=== PATIENT | female | born 1945 | race Hispanic/Latino ===

== ENCOUNTER 2016-11-12 06:41 | Day surgery (SDC) | payer MEDICARE ==
[~2016-11-12] VITALS: Ht 162.6 cm; Wt 70.3 kg
[~2016-11-12 06:41] MED LIST: ADVAIR HF2 INH; ALPHA LIPOIC600 MG PO; CARE; CIPRO500 MG OR; CIPROFLOXACIN250 MG PO; CYMBALTA30 MG PO; CYMBALTA60 MG PO; DETROL LA2 MG OR; DICLOXACILL500 MG PO; DOCUSATE SOD100 M2 PO; DULERA1 AER IN; ELAVIL10 MG PO; ELAVIL25 MG PO; EPIPEN0.3 MG IM; FLEXERIL10 MG PO; FLONASE SPRAY50 MC1; GABAPENTIN300 M2 PO; GABAPENTIN800 MG PO; GNP IBUPROFEN PO; HUMULIN 70/30 K1 INJ SC; HYDROCHLOROT25 MG PO; HYDROMET1 M1 PO; LANTUS100 MG/ML SC; LATANOPROST0.005 % OP; LEVEMIR FL100 UNIT/M SC; LEVEMIR FLEXPEN SC; LISINOPRIL10 MG PO; LISINOPRIL5 MG OR; LORTAB 7.5-3251 TAB PO; LYRICA50 MG PO; METFORMIN1000 MG PO; METFORMIN500 M1 OR; METFORMIN500 MG PO; MUCINEX600 MG OR; MULTIVITAMIN WO1 TAB PO; NASONEX50 MCG/AC; NOVOLIN 70/30 SC; NOVOLO1 SC; NOVOLOG SC; NYSTATIN100000 M1 PO; ONE TOUCH ULTRA XX; OXYBUTYNIN5 MG PO; PEN NEEDLE1 SC; PREDNISODT10 PO; PREDNISONE2.5 MG PO; PREDNISONE5 MG OR; PREVACID30 M1 PO; PROAIR HFA IN; PROMETHAZINE25 MG OR; SINGULAIR10 MG PO; SSKI1 GM/ML PO; VICODIN1 TAB PO; VICTOZA18 MG/3 ML SC; VITAMIN D35000 UNIT PO; VITAMIN D50000 UNT PO; XOLAIR150 MG SC; XOPENEX IN; [UNRECOGNIZED DRUG - OTHER] SC; [UNRECOGNIZED DRUG - SUPPLY] XX
[2016-11-12] MEDS ORDERED: LEVAQUIN500 MG PO (11:01)
[2016-11-12] MEDS ORDERED: TRAMADOL HYDROC50 MG PO (11:01)
[2016-11-12 11:30] VITALS: BP 106/53
== END 2016-11-12 15:00 | disposition home or self-care (01) ==
LOC: PO 06:41 → ORM 06:41 → PO 07:00 → ORM 07:00
PROVIDERS: ATTEND Urology
PROC: 0TSD0ZZ Reposition Urethra, Open Approach (ICD-10-PCS; principal; 2016-11-12)
DX: N39.3 Stress incontinence (female) (male) (principal); J45.909 Unspecified asthma, uncomplicated; I10 Essential (primary) hypertension; G62.9 Polyneuropathy, unspecified
CPT/HCPCS: C1771; J1956

== ENCOUNTER 2017-08-19 07:56 | Emergency (ER) | payer MEDICARE ==
[~2017-08-19] VITALS: Ht 162.6 cm; Wt 70.0 kg
[~2017-08-19 07:56] MED LIST changes: +CLONAZEP ODT0.5 MG PO; +FISH OIL1 CAP PO; +HUMULIN R500 UNIT/1; +LEVAQUIN500 MG PO; +TRAMADOL HYDROC50 MG PO
[2017-08-19] MEDS ORDERED: PREDNISONE10 MG PO (08:25)
[2017-08-19] MEDS ORDERED: Levaquin PO (08:26)
[2017-08-19 08:56] LABS: HEMATOCRIT 42.7 % (37.0-47.0); HEMOGLOBIN 14.6 g/dl (12.0-16.0); IMMATURE GRANULOCYTES 0.4 % (0.0-1.0); MEAN CELL VOLUME 91.6 fL CALC (80.0-100.0); MEAN CORPUSCULAR HGB 31.3 pG CALC (26.0-32.0); MEAN CORPUSCULAR HGB CONC 34.2 g/L CALC (32.0-36.0); NEUT# 7.35 thou/uL (2.00-7.15); RED BLOOD COUNT 4.66 mill/uL (4.20-5.60); RED CELL DISTRI WIDTH 13.2 % (11.5-15.5)
[2017-08-19 09:08] LABS: INFLUENZA A NONE DETECTED (NONE DETECT); INFLUENZA B NONE DETECTED (NONE DETECT)
[2017-08-19 09:11] LABS: ALBUMIN 4.1 g/dL (3.2-5.0); ALKALINE PHOSPHATASE 141 u/l (38-126); ANION GAP 17 (6-22 (CALC)); BILIRUBIN, TOTAL 0.6 mg/dL (0.0-1.4); BUN 21 mg/dL (8-23); BUN/CREATININE RATIO 29 (12-20 (CALC)); CARBON DIOXIDE 25 mmol/l (22-30); CHLORIDE 106 mmol/l (95-108); CREATININE 0.7 mg/dL (0.5-1.0); GFR > 60 ML/MIN (>=60 (CALC)); GFR FOR AFR.AMER. > 60 ML/MIN (>=60 (CALC)); GLUCOSE 258 mg/dL (82-115); POTASSIUM 3.6 mmol/l (3.5-5.1); SGOT/AST 26 u/l (9-36); SGPT/ALT 48 u/l (11-66); SODIUM 143 mmol/l (137-146); TOTAL PROTEIN 7.4 g/dL (6.3-8.2)
[2017-08-19] MEDS ORDERED: ROBITUSSIN AC10 ML PO (09:54)
[2017-08-19] MEDS ORDERED: CEPHALEXIN500 MG PO (09:54)
[2017-08-19 10:24] VITALS: BP 124/65
== END 2017-08-19 10:43 | disposition home or self-care (01) ==
LOC: ED 07:56
PROVIDERS: Emergency Medicine
DX: J06.9 Acute upper respiratory infection, unspecified (principal); R05 Cough

== ENCOUNTER 2019-09-18 17:23 | Inpatient (IN) | payer MEDICARE ==
[~2019-09-18] VITALS: Ht 160 cm; Wt 67.6 kg
[~2019-09-18 17:23] MED LIST changes: +CEPHALEXIN500 MG PO; +DORZOLAMIDE HCL2 % OU; +HUMULIN R500 UNIT/1 IJ; +Levaquin PO; +METFORMIN HCL500 M1 PO; +OXYBUTININ PO; +PREDNISONE10 MG PO; +PRILOSEC20 MG PO; +ROBITUSSIN AC10 ML PO
--- NOTE | 2019-09-18 18:56 | NUR ---
TO ROOM VIA WC
--- NOTE | 2019-09-18 19:45 | NUR ---
RESTING QUIETLY AWAITING X-RAY RESULTS
--- NOTE | 2019-09-18 20:30 | NUR ---
AWAITING TEST RESULTS
--- NOTE | 2019-09-18 21:20 | NUR ---
LEFT ANKLE POSTERIOR SPLINT APPLIED
[2019-09-18] MEDS ORDERED: PERCOCET 5/321 COMBO PO (21:34)
[2019-09-18] MEDS ORDERED: WALKER/ADULT/FOLDING EX (21:36)
--- NOTE | 2019-09-18 22:30 | NUR ---
D/C CANCELLED. SURGERY REPAIR TO BE DONE TONIGHT
--- NOTE | 2019-09-18 22:40 | NUR ---
DR CAGLE DISCUSSED WITH PT.
[2019-09-18 23:09] LABS: HEMATOCRIT 39.5 % (37.0-47.0); HEMOGLOBIN 13.3 g/dl (12.0-16.0); IMMATURE GRANULOCYTES 0.5 % (0.0-5.0); MEAN CELL VOLUME 92.3 fL CALC (80.0-100.0); MEAN CORPUSCULAR HGB 31.1 pG CALC (26.0-32.0); MEAN CORPUSCULAR HGB CONC 33.7 g/L CALC (32.0-36.0); NEUT# 11.2 thou/uL (2.00-7.15); RED BLOOD COUNT 4.28 mill/uL (4.20-5.60); RED CELL DISTRI WIDTH 13.4 % (11.5-15.5)
[2019-09-18 23:27] LABS: ALBUMIN 4.4 g/dL (3.2-5.0); ALKALINE PHOSPHATASE 161 u/l (38-126); ANION GAP 14 (6-22 (CALC)); BILIRUBIN, TOTAL 0.5 mg/dL (0.0-1.4); BUN 11 mg/dL (8-23); BUN/CREATININE RATIO 23 (12-20 (CALC)); CARBON DIOXIDE 25 mmol/l (22-30); CHLORIDE 100 mmol/l (95-108); CREATININE 0.5 mg/dL (0.5-1.0); GFR > 60 ML/MIN (>=60 (CALC)); GFR FOR AFR.AMER. > 60 ML/MIN (>=60 (CALC)); POTASSIUM 3.5 mmol/l (3.5-5.1); SGOT/AST 24 u/l (9-36); SODIUM 136 mmol/l (137-146); TOTAL PROTEIN 7.8 g/dL (6.3-8.2)
[2019-09-18 23:28] LABS: ACT PARTIAL THROMBO TIME 26.6 SECONDS (20.0-32.5); INTERNATIONAL NORMALIZED RATIO 1.1 RATIO (0.7-1.3); PROTHROMBIN TIME 11.3 SECONDS (9.0-12.5)
--- NOTE | 2019-09-18 23:56 | NUR ---
TO OR VIA STRETCHER
[2019-09-19] VITALS (7 sets, daily range): BP systolic 124–162; BP diastolic 61–83
--- NOTE | 2019-09-19 02:30 | NUR ---
RECEIVED PT TO ICU BED 3 WITH OR STAFF AND ANESTHESIA.
--- NOTE | 2019-09-19 02:45 | NUR ---
SPOUSE TO BEDSIDE.
--- NOTE | 2019-09-19 03:15 | NUR ---
PT AWAKE AND ALERT, ANSWERS QUESTIONS APPROPRIATELY. CMS INTACT TO L TOES. L LOWER LEG FIXATOR INTACT, DRESSING TO L LOWER EXTREMITY DRY AND INTACT. #20 IV TO R WRIST. PT ABLE TO MOVE L TOES. ELEVATED L LEG, ICE BEHIND L KNEE. CALL NEAL IN REACH.
--- NOTE | 2019-09-19 05:24 | NUR ---
ASSISTED PT TO BEDPAN.
--- NOTE | 2019-09-19 06:57 | NUR ---
REPORT GIVEN TO ANTHONY FOSTER
--- NOTE | 2019-09-19 07:20 | NUR ---
PT RESTING IN BED AWAKE.PT IS ALERT AND ORIENTED X3. SHIFT ASSESSMENT COMPLETED AT THIS TIME. IV PATENT X1. CALL LIGHT IN REACH. WILL CONTINUE TO MONITOR.
--- NOTE | 2019-09-19 07:45 | NUR ---
PT SET UP FOR AM MEAL
--- NOTE | 2019-09-19 09:00 | NUR ---
DR GALE AT BEDSIDE AT THIS TIME
[2019-09-19] MEDS ORDERED: TRESIBA100 UNIT/M SC (09:02)
--- NOTE | 2019-09-19 10:19 | NUR ---
PHYSICAL THERAPY AT BEDSIDE AT THIS TIME
--- NOTE | 2019-09-19 11:00 | NUR ---
REPORT CALLED TO CHELSEY SANDHU ON MED SURG
--- NOTE | 2019-09-19 11:45 | NUR ---
PT SET UP FOR NOON MEAL AT THIS TIME.
--- NOTE | 2019-09-19 12:30 | NUR ---
PT RESTING IN BED AWAKE AND WATCHING TV. RESP ARE EVEN AND UNLABORED. NO DISTRESS NOTED. CALL LIGHT IN REACH. WILL CONTINUE TO MONITOR.
--- NOTE | 2019-09-19 13:42 | NUR ---
PT TO RADIOLOGY VIA STRETCHER FOR CT SCAN AND WILL THEN BE TRANSPORTED TO MED SURG FLOOR.
--- NOTE | 2019-09-19 13:58 | NUR ---
PT ARRIVED TO MED/SURG ROOM 281 IN STABLE CONDITION VIA STRETCHER ACCOMPANIED BY DARRYN MAC;PT TRANSPORTED WITH X4 PERSON ASSIST TO HOSPITAL BED;PT A&O X3,ORIENTED TO ROOM AND CALL LIGHT SYSTEM;WT AND VS OBTAINED BY DARRYN VELEZ;PT DENIES ANY CURRENT PAIN OR DISCOMFORTS,PAIN SCALE AND REPORTING EDUCATED;ASSESSMENT COMPLETED;RESPIRATIONS EVEN AND UNLABORED ON RA,NON-PRODUCTIVE COUGH NOTED AT TIMES;CLEAR LUNG SOUNDS;ABDOMEN SOFT ON PALPATION AND ACTIVE IN ALL 4 QUADRANTS;STRONG RIGHT PEDAL PULSES;EXTERNAL FIXATOR IN PLACE AND LEFT FOOT ELEVATED ON A PILLOW;CAP REFILL LESS THAN 3 SECONDS;SKIN INTACT;#20G TO RW FLUSHED AND PATENT,SITE APPEARS HEALTHY;FALL AND ALLERGY BAND IN PLACE;PT DENIES ANY ADDITIONAL NEEDS AT THIS TIME AND IS ENCOURAGED TO CALL FOR ASSISTANCE IF NEEDED;FALL PRECAUTIONS IN PLACE WITH BED IN THE LOWEST POSITION AND CALL LIGHT IN REACH;WILL CONTINUE TO MONITOR
--- NOTE | 2019-09-19 15:50 | NUR ---
PT RESTING IN SEMI FOWLERS POSITION WITH MULTIPLE FAMILY MEMBERS AT BEDSIDE;RESPIRATIONS EVEN AND UNLABORED ON RA;PT REPORTS LLE PAIN RATING 7/10 ON THE PAIN SCALE AND REQUESTS PAIN MEDICATION,PT MEDICATED WITH PRN PERCOCET 5/325MG PO AT THIS TIME;IV SITE PATENT;EXTERNAL FIXATOR REMAINS IN PLACE TO LLE WITH ELEVATION BY PILLOW;SCD TO RLE;PT ENCOURAGED TO CALL FOR ASSISTANCE IF NEEDED;FALL PRECAUTIONS REMAIN IN PLACE WITH CALL LIGHT IN REACH;WILL CONTINUE TO MONITOR
--- NOTE | 2019-09-19 22:30 | NUR ---
PATIENT ASSIST TO THE BSC TO VOID 250CC OF YELLOW URINE-NBB STATUS MAINTAINED TO LLE. ASSISTED BACK INTO BED. [id number] WITH 2UNIT OF NOVALOG PER COERAGE PROTOCOL. MEDICATED FOR PAIN WITH PERCOCET 5/325MG PO FOR PAIN. ELEVATED LLE ON PILLOWS. EXT FIXATOR INTACT. CALL IGHT IN REACH. WILL CONT TO MONITOR.
[2019-09-20] VITALS: BP 132/83
--- NOTE | 2019-09-20 | NUR ---
PATIENT RESTING IN BED-O2 SAT ONLY 90% ON RA. O2 VIA NASAL CANNULA APPLIED AT THIS TIME VS TAKEN AND RECORDED. PATIENT RESTLESS IN BED-LLE ELEVATED ON PILLOWS. CALL LIGHT IN REACH. WILL CONT TO MONITOR.
--- NOTE | 2019-09-20 03:36 | NUR ---
PATIENT RESTING IN BED AT THIS TIME-AWAKE ALERT AND ORIENTEDX3. PATIENT WITH LLE EXT FIXATOR IN PLACE. CMS TO LLE TOES WNL. DRESSING TO LLE IS CDI AND SECURED WITH RALPH WRAP. PATIENT WITH IV SITE TO RIGHT WRIST INTACT-SITE APPEARS HEALTHY AT THIS ITME. NO NEEDS EXPRESSED AT THIS TIME. SAFETY PRECAUTIONS REINFORCED. REINFORCED NWB STATUS WITH PATIENT. CALL LIGHT IN REACH. WILL CONT TO MONITOR.
[2019-09-20 04:00] VITALS: BP 144/75
[2019-09-20 05:25] LABS: HEMOGLOBIN 12.1 g/dl (12.0-16.0); MEAN CELL VOLUME 94.4 fL CALC (80.0-100.0); MEAN CORPUSCULAR HGB 30.9 pG CALC (26.0-32.0); MEAN CORPUSCULAR HGB CONC 32.7 g/L CALC (32.0-36.0); RED BLOOD COUNT 3.92 mill/uL (4.20-5.60); RED CELL DISTRI WIDTH 13.6 % (11.5-15.5)
[2019-09-20 05:58] LABS: ANION GAP 11 (6-22 (CALC)); BUN 11 mg/dL (8-23); BUN/CREATININE RATIO 26 (12-20 (CALC)); CARBON DIOXIDE 24 mmol/l (22-30); CHLORIDE 106 mmol/l (95-108); CREATININE 0.4 mg/dL (0.5-1.0); GFR > 60 ML/MIN (>=60 (CALC)); GFR FOR AFR.AMER. > 60 ML/MIN (>=60 (CALC)); POTASSIUM 3.9 mmol/l (3.5-5.1); SODIUM 137 mmol/l (137-146)
[2019-09-20 07:39] VITALS: BP 152/74
--- NOTE | 2019-09-20 08:00 | NUR ---
PT IS ALERT AND ORIENTED X 3. LEFT LEG SEEN TO HAVE EXTERNAL FIXATOR PER RECENT SURGERY. PT WITH DIMINISHED BUT CLEAR LUNG SOUNDS, 2 LPM NC. NO DISTRESS OR DISCOMFORT NOTED AT THIS TIME.
--- NOTE | 2019-09-20 12:00 | NUR ---
PT RECEIVES PAIN MEDS NEEDED FOR LEFT FOOT PAIN. NO CHANGE IN STATUS NOTED. VISITOR AT BEDSIDE.
[2019-09-20 15:37] VITALS: BP 155/73
--- NOTE | 2019-09-20 16:21 | NUR ---
PT SPOKE WITH DR MCKINNEY THIS AFTERNOON, AGREED TO BE TRANSFERRED TO [facility]. PT STATES SHE WAS TOLD THIS WOULD HAPPEN TOMORROW. NO COMPLAINT OF PAIN, BUT MEDICATED WHEN NEED ARISES.
[2019-09-20 18:50] VITALS: BP 130/75
--- NOTE | 2019-09-20 20:00 | NUR ---
PATIENT RESTING IN BED WITH HOB ELEVATED. AWAKE ALERT AND ORIENTEDX3. EXT FIXATOR TO LLE IN PLACE. DRESSING TO LLE INTACT AND SECURED WITH RALPH WRAP. CMS TO LLE WNL-ELEVATED ON PILLOWS. SALINE LOCK TO RIGHT WRIST INTACT. NO NEEDS VOICED AT THIS TIME. SAFETY PRECAUTIONS AND NWB STATUS REINFORCED. CALL LIGHT IN REACH. WILL CONT TO MONITOR.
[2019-09-21 00:04] VITALS: BP 152/82
--- NOTE | 2019-09-21 00:30 | NUR ---
PATIENT RESTINGIN BED AT THIS TIME-APPEARS SLEEPING WITH EYES CLOSED. RESP EVEN AND UNLABORED. LLE WITH EXTERNAL FIXATOR IN PLACE AND ELEVATED ON PILLOWS. DRESSING TO LLE INTACT AND SECURED WITHACE WRAP. CALL LIGHT IN REACH. WILL CONT TO MONITOR.
--- NOTE | 2019-09-21 01:38 | NUR ---
PATIENT RESTING IN [id number] 268-COVERED WITH 3UNITS OF NOVALOG PER COVERAGE PROTOCOL. HS SNACK PROVIDED FOR SNACK. MEDICATED FOR PAIN WITH PERCOCET ORDERED FOR LLE PAIN. CALL LIGHT IN REACH. WILL CONT TO MONITOR.
--- NOTE | 2019-09-21 01:58 | NUR ---
PATIENT APPEARS SLEEPING WITH EYES CLOSED. RESPS ARE EVEN AND UNLABORED. LLE ELEVATED ON PILLOWS. CALL LIGHT IN REACH. WILL CONT TO MONITOR.
--- NOTE | 2019-09-21 03:54 | NUR ---
PATIENT AWAKE-SPILLED HER WATER AND LINENS WERE CHANGED. C/O LLE PAIN-8/10 ON PAIN SCALE. MEDICATED WITH PERCOCET 5/325MG FOR PAIN LLE ELEVATED ON PILLOWS. SAFETY PRECAUTIONS REINFORCED. CALL LIGHT IN REACH. WILL CONT TO MONITOR.
[2019-09-21 04:09] VITALS: BP 152/81
--- NOTE | 2019-09-21 06:40 | NUR ---
PT note 09/20/19 Patient is seen for recheck anc setting of goals She has an Am Pac score of 12 mostly due to her external fixator She is able to transfer to stand withmin assist . She is even able to take a couple of steps with fixator, walker and NWB status with mod assist of 1 although I did NOT recommend she walk repeatedly as this would cause undo strain on the contralteral LE. I did encourage her to stand 6 x daily and transfer independently. She is instructed in quad sets and toe curls for HEP Goals 1. Independent transfers bed to chair 2. Independent bed mobility 3. Independent HEP in 5 days Patient willbe seen 5x weekly 1-2 daily for therex and transfer training
[2019-09-21 07:50] VITALS: BP 123/69
--- NOTE | 2019-09-21 08:00 | NUR ---
PT AWAKE, ALERT, ORIENTED X 3. LEFT FOOT REMAINS IN ORIF, PT ABLE TO MANEUVER AROUND BED WITHOUT DIFFICULTY. PT MEDICATED FOR PAIN NEEDED.
--- NOTE | 2019-09-21 10:41 | NUR ---
PT WAS SEEN FOR THEREX AND TRANSFERS. SHE WAS ABLE TO INDEPENDENTLY PERFORM SUPINE<>SIT AND SIT<>STAND UTILING B UE AND A WALKER. THERAPIST PROVIDED [employer] FOR PROPER HAND PLACEMENT. SHE THEN SAFELY TRANSFERRED FROM BED TO RECLINER WITH A WALKER AND CGA WHILE NWB ON L LE. NOTED WEAKNESS ON B UE AND INSTABILITY ON TRANSFERS. PT SAFELY SAT DOWN IN THE CHAIR WITH VCS. SHE WILL BENEFIT FROM [facility] FOR UE AND R LE STRENGTHENING FOR SAFE TRANSFERS AND AMBULATION. SHE WAS INSTRUCTED ON THEREX- CHAIR DIPS WITH R LE ASSIST. [facility] SCORE TODAY: 13 POINTS
[2019-09-21 15:15] VITALS: BP 134/76
--- NOTE | 2019-09-21 16:32 | NUR ---
PT SEEN BY DR GALE THIS MORNING. PT REMAINS BEFORE, OCCASIONAL PAIN MED GIVEN FOR RELIEF OF LEFT FOOT DISCOMFORT.
--- NOTE | 2019-09-21 18:12 | NUR ---
PT CONTINUES BEFORE, NO CHANGE IN STATUS. AT BEDSIDE INTERMITTENTLY.
[2019-09-21 19:30] VITALS: BP 137/65
--- NOTE | 2019-09-21 22:28 | NUR ---
PT ASSISTED TO BSC BY TONNAGE COMPILATION CLERK, PT TOLERATED WELL. PT RESTING IN BED, NO SIGNS OF DISTRESS NOTED, RESP EVEN AND UNLABORED. CALL LIGHT IN REACH,CONTINUE TO MONITOR.
--- NOTE | 2019-09-22 | NUR ---
PT RESTING IN BED WITH EYES CLOSED, NO SIGNS OF DISTRESS NOTED, RESP EVEN AND UNLABORED. CALL LIGHT IN REACH,CONTINUE TO MONITOR.
--- NOTE | 2019-09-22 03:29 | NUR ---
PT RESTING IN BED, WITH EYES CLOSED, NO SIGNS OF DISTRESS NOTED, RESP EVEN AND UNLABORED. CALL LIGHT IN REACH,CONTINUE TO MONITOR.
[2019-09-22 04:31] VITALS: BP 153/75
--- NOTE | 2019-09-22 06:19 | NUR ---
PT RESTING IN BED WITH EYES CLOSED, NO SIGNS OF DISTRESS NOTED, RESP EVEN AND UNLABORED. CALL LIGHT IN REACH,CONTINUE TO MONITOR.
--- NOTE | 2019-09-22 07:20 | NUR ---
REPORT RECEIVED FROM EDSON STANFORD. PT. ASSISTED WITH REPOSITIONING AND BOOSTING UP IN BED. PT DENIES PAIN AT THIS TIME. REPORTING OF CONCERNS ENCOURAGED. FALL PRECAUTIONS REINFORCED. CALL LIGHT REVIEWED AND IN REACH. PT STATES UNDERSTANDING.
[2019-09-22 07:37] VITALS: BP 144/64
[2019-09-22 10:50] VITALS: BP 142/81
--- NOTE | 2019-09-22 11:21 | NUR ---
Physical Therapy Visit Note Patient identified by name and date of . Patient expressed readiness for physical therapy. PT Management: 1. Active range of motion of both UE x 10 repetitions 2. Active range of motion of both LE x 10 repetitions 3. Sitting push-ups x 10 repetitions. 4. Sit to stand x 1 repetition 5. Standing balance/tolerance x 1 minute with rolling walker for support and +1 minimal assist for safety. Patient was able to perform all exercises with minimal fatigue. Patient advised to ask for assistance when performing when sitting or standing alone or performing transfers. Patient verbalized understanding. Patient left in the room sittng and call button within reach after physical therapy session.
--- NOTE | 2019-09-22 11:30 | NUR ---
PT. COMPLETED PHYSICAL THERAPY AT BEDSIDE. REPORTS TOELRATING ACTIVITY WELL.
[2019-09-22] MEDS ORDERED: PERCOCET 5/325M1 TAB PO (13:35)
--- NOTE | 2019-09-22 14:00 | NUR ---
DR. GALE IN TO SEE PT. DISCHARGE HOME DISCUSSED. PT STATES AGREEMENT W/ PLAN.
[2019-09-22 15:26] VITALS: BP 104/67
--- NOTE | 2019-09-22 17:46 | NUR ---
Discharge instructions given. Patient verbalizes understanding of same. Discharged in stable condition via Wheelchair to Home with spouse. All belongings sent with pt.
== END 2019-09-22 17:43 | DRG 494 ==
LOC: ED 17:23 → ED-I 19:23 → ED 23:54 → ICU 23:55 → ED 23:57 → MS2 09-19 13:57 → UNDODEPER 09-19 23:56 → ED-I 09-19 23:57 → MS2 09-22 17:43
PROVIDERS: Emergency Medicine; ADMIT Internal Medicine; ATTEND Internal Medicine
PROC: 0QSK35Z Reposition Left Fibula with External Fixation Device, Percutaneous Approach (ICD-10-PCS; principal; 2019-09-19)
PROC: 0QSH35Z Reposition Left Tibia with External Fixation Device, Percutaneous Approach (ICD-10-PCS; 2019-09-19)
DX: S82.302A Unspecified fracture of lower end of left tibia, initial encounter for closed fracture (principal); S82.832A Other fracture of upper and lower end of left fibula, initial encounter for closed fracture; E11.42 Type 2 diabetes mellitus with diabetic polyneuropathy; E11.65 Type 2 diabetes mellitus with hyperglycemia; I10 Essential (primary) hypertension; J44.9 Chronic obstructive pulmonary disease, unspecified; D86.9 Sarcoidosis, unspecified; W01.0XXA Fall on same level from slipping, tripping and stumbling without subsequent striking against object, initial encounter; Z79.4 Long term (current) use of insulin; Z79.52 Long term (current) use of systemic steroids
CPT/HCPCS: J0131; J1650

== ENCOUNTER 2019-10-06 11:56 | Day surgery (SDC) | payer MEDICARE ==
[~2019-10-06] VITALS: Ht 160 cm; Wt 61.4 kg
[~2019-10-06 11:56] MED LIST changes: +PERCOCET 5/321 COMBO PO; +PERCOCET 5/325M1 TAB PO; +TRESIBA100 UNIT/M SC; +WALKER/ADULT/FOLDING EX
[2019-10-06 18:36] VITALS: BP 148/60
--- NOTE | 2019-10-06 18:43 | NUR ---
PT ARRIVED TO [facility] UNIT ROOM 269 AT 1821 VIA STRETCHER WITH OR STAFF. BEDSIDE REPORT RECIEVED. PT RESTING WITH EYES CLOSED AND NO SIGNS OF PAIN. FOLLOWS COMMANDS. RESPIRATIONS EVEN AND UNLABORED ON OXYGEN 2L VIA NC. TRASFERRED WITH 2 PERSON ASSIST TO BED. NORMAL SALINE INFUSING UPON ARRIVAL AND IV SITE APPEARS HEALTHY. LEFT FOOT WITH PARTIAL BOOT AND RALPH WRAP WITH GOOD CMS TO TOES. SCD TO RLE. SAFETY MEASURES IN PLACE. CALL LIGHT WITHIN REACH.
--- NOTE | 2019-10-06 19:10 | NUR ---
REPORT RECEIVED FROM CRISTIAN JUNIOR. PT RESTING IN BED. NO S/S OF DISTRESS AT THIS TIME. SAFETY PRECAUTIONS IN PLACE. WILL CONTINUE TO MONITOR.
--- NOTE | 2019-10-06 21:10 | NUR ---
PT RESTING IN BED. ALERT AND ORIENTED. RESPIRATIONS EVEN AND UNLABORED ON O2 @ 2L VIA NC. LUNGS SOUND CLEAR. PEDAL PULSES WEAK. SAFETY PRECAUTIONS IN PLACE. WILL CONTINUE TO MONITOR.
[2019-10-06 23:46] VITALS: BP 142/73
--- NOTE | 2019-10-07 00:12 | NUR ---
PT RESTING IN BED. NO S/ OF DISTRESS AT THIS TIME. WILL CONTINUE TO MONITOR.
--- NOTE | 2019-10-07 03:57 | NUR ---
PT RESTING IN BED. RESPIRATIONS EVEN AND UNLABORED ON O2 @ 2L VIA NC. SAFETY PRECAUTIONS IN PLACE. WILL CONTINUE TO MONITOR.
[2019-10-07 04:00] VITALS: BP 145/59
[2019-10-07 05:10] LABS: HEMATOCRIT 37.2 % (37.0-47.0); HEMOGLOBIN 11.5 g/dl (12.0-16.0); MEAN CORPUSCULAR HGB 31.3 pG CALC (26.0-32.0); MEAN CORPUSCULAR HGB CONC 30.9 g/L CALC (32.0-36.0); RED BLOOD COUNT 3.68 mill/uL (4.20-5.60); RED CELL DISTRI WIDTH 13.7 % (11.5-15.5)
[2019-10-07 05:19] LABS: MEAN CELL VOLUME 101.1 fL CALC (80.0-100.0)
[2019-10-07 05:45] LABS: ALKALINE PHOSPHATASE 149 u/l (38-126); BUN 5 mg/dL (8-23); BUN/CREATININE RATIO 13 (12-20 (CALC)); CARBON DIOXIDE 22 mmol/l (22-30); CHLORIDE 105 mmol/l (95-108); CREATININE 0.3 mg/dL (0.5-1.0); GFR > 60 ML/MIN (>=60 (CALC)); GFR FOR AFR.AMER. > 60 ML/MIN (>=60 (CALC)); SODIUM 134 mmol/l (137-146); TOTAL PROTEIN 6.8 g/dL (6.3-8.2)
[2019-10-07 05:47] LABS: ALBUMIN 3.4 g/dL (3.2-5.0); ANION GAP 12 (6-22 (CALC)); BILIRUBIN, TOTAL 1.2 mg/dL (0.0-1.4); SGOT/AST 43 u/l (9-36)
--- NOTE | 2019-10-07 07:20 | NUR ---
0720-Pt lying in bed with eyes closed. No s/s of distress. Bed low and locked. Call light and phone within reach. Pt stable. Will continue to monitor.
[2019-10-07 07:27] VITALS: BP 125/57
[2019-10-07 10:45] VITALS: BP 159/59
--- NOTE | 2019-10-07 14:30 | NUR ---
1430-Pt needed assistance to bedside commode. Verbalizes pain, med given. Assisted back to bed. Bed low and locked. Call light and phone within reach. Pt stable lying in bed. Will continue to monitor.
[2019-10-07 15:36] VITALS: BP 97/50
--- NOTE | 2019-10-07 17:17 | NUR ---
1717-Pt glucose 402. Dr. Sellers notified, orders given over the phone for medium sliding scale QID, give 12 units Novolog now. Orders read back and verified. Orders faxed to . Prashant assisted me.
[2019-10-07 18:49] VITALS: BP 111/58
[2019-10-07 23:57] VITALS: BP 99/40
--- NOTE | 2019-10-08 00:38 | NUR ---
PATIENT APPEARS SLEEPING AT THIS TIME-EYES CLOSED AND RESP ARE EVEN AND UNLABORED. O2 VIA NASAL CANNULA IN PLACE. DRESSING TO LEFT LE INTACT AND SECURED WITH RALPH WRAP. LLE ELEVATED ON PILLOWS. CMS TO TOES WNL. SALINE LOCK TO LEFT WRIST INTACT. CALL LIGHT IN REACH. WILL CONT TO MONITOR.
[2019-10-08 03:58] VITALS: BP 133/56
--- NOTE | 2019-10-08 05:30 | NUR ---
PATIENT RESTING IN BED WITH LLE ELEVATED ON PILLOWS. C/O POST-OP PAIN TO LLE-MEDIATED WITH PERCOCET 5/325MG PO. DRESSING TO LLE IS INTACT AND SECURED WITH RALPH WRAP. O2 VIA NASAL CANNULA IN PLACE. CALL LIGHT IN REACH. WILL CONT TO MONITOR.
[2019-10-08 07:28] VITALS: BP 110/63
--- NOTE | 2019-10-08 07:28 | NUR ---
PT SITTING IN BED WATCHING TV. A&O X3. NO DISTRESS NOTED. PT DENIES ANY PAIN AT THIS TIME. LLE ELEVATED ON PILLOW. RALPH BANDAGE IN PLACE. NO OTHER NEEDS AT THIS TIME. ASSESSMENT COMPLETED. DISCUSSED POC. CALL LIGHT IN REACH. CONTINUE TO MONITOR.
--- NOTE | 2019-10-08 13:46 | NUR ---
DISCUSSED D/C INSTRUCTIONS WITH PT AND . PT VERBALIZED UNDERSTANDING. IV INTACT UPON REMOVAL.
--- NOTE | 2019-10-08 14:05 | NUR ---
Discharge instructions given. Patient verbalizes understanding of same. Discharged in stable condition via wheelchair to home with [facility]- accompanied by spouse and staff. All belongings sent with pt.
== END 2019-10-08 14:05 ==
LOC: ORM 11:56 → MS2 18:21 → ORM 10-08 14:05
PROVIDERS: Internal Medicine; ATTEND Podiatrist Foot & Ankle Surgery
PROC: 0QSK04Z Reposition Left Fibula with Internal Fixation Device, Open Approach (ICD-10-PCS; principal; 2019-10-06)
PROC: 0QSH04Z Reposition Left Tibia with Internal Fixation Device, Open Approach (ICD-10-PCS; 2019-10-06)
PROC: 0QPKX5Z Removal of External Fixation Device from Left Fibula, External Approach (ICD-10-PCS; 2019-10-06)
PROC: 0QPHX5Z Removal of External Fixation Device from Left Tibia, External Approach (ICD-10-PCS; 2019-10-06)
DX: S82.872A Displaced pilon fracture of left tibia, initial encounter for closed fracture (principal); S82.832A Other fracture of upper and lower end of left fibula, initial encounter for closed fracture; E11.42 Type 2 diabetes mellitus with diabetic polyneuropathy; I10 Essential (primary) hypertension; J44.9 Chronic obstructive pulmonary disease, unspecified; G89.18 Other acute postprocedural pain; X58.XXXA Exposure to other specified factors, initial encounter; W01.0XXA Fall on same level from slipping, tripping and stumbling without subsequent striking against object, initial encounter; Y92.009 Unspecified place in unspecified non-institutional (private) residence as the place of occurrence of the external cause; Z79.84 Long term (current) use of oral hypoglycemic drugs
CPT/HCPCS: C1713; J0131

== ENCOUNTER 2021-06-10 09:27 | Day surgery (SDC) | payer MEDICARE ==
[~2021-06-10 09:27] MED LIST changes: +COZAAR50 MG PO; +DICLOFENAC SODIUM1 % TOP; +DITROPAN5 MG/TA1 PO; +DULERA 50-5 MCG1 AER IN; +ELAVIL25 M1 PO; -ELAVIL25 MG PO; +EPIPEN 2-P0.3 MG/0.3 IM; -EPIPEN0.3 MG IM; +FLONASE AL50 MCG/ACT NAB; +HUMALOG KW75 MG/25 K SC; -PRILOSEC20 MG PO; +PRILOSEC20 MG/CAP PO; +ZOFRAN4 MG/TAB PO
[2021-06-10 13:10] VITALS: BP 128/72
--- NOTE | 2021-06-17 08:00 | NUR ---
PER DR RAMÍREZ, PATHOLOGY WAS NEGATIVE. I ADVISED THE PATIENT OF THE SAME. EXPLAINED TO CONTINUE WITH OMEPRAZOLE. PATIENT STATED SHE UNDERSTOOD AND DID NOT HAVE ANY QUESTIONS OR CONCERNS
== END 2021-06-10 13:30 | disposition home or self-care (01) ==
LOC: ENDO 09:27 → ORM 09:30 → ENDO 09:30 → ORM 10:15 → ENDO 11:50
PROVIDERS: ATTEND Surgery
PROC: 0DJD8ZZ Inspection of Lower Intestinal Tract, Via Natural or Artificial Opening Endoscopic (ICD-10-PCS; principal; 2021-06-10)
PROC: 0DB68ZX Excision of Stomach, Via Natural or Artificial Opening Endoscopic, Diagnostic (ICD-10-PCS; 2021-06-10)
PROC: 0DB78ZX Excision of Stomach, Pylorus, Via Natural or Artificial Opening Endoscopic, Diagnostic (ICD-10-PCS; 2021-06-10)
DX: Z12.11 Encounter for screening for malignant neoplasm of colon (principal); K64.8 Other hemorrhoids; K29.50 Unspecified chronic gastritis without bleeding; K31.7 Polyp of stomach and duodenum; I10 Essential (primary) hypertension; J45.909 Unspecified asthma, uncomplicated; E11.319 Type 2 diabetes mellitus with unspecified diabetic retinopathy without macular edema; Z79.4 Long term (current) use of insulin; Z90.49 Acquired absence of other specified parts of digestive tract
CPT/HCPCS: 43239; G0121